=== PATIENT | female | born 1965 | race Caucasian/White ===

== ENCOUNTER 2017-07-27 16:42 | Observation (INO) | payer BC ==
[~2017-07-27] VITALS: Ht 152.4 cm; Wt 73.0 kg
[2017-07-27] MEDS ORDERED: FENTANYL CITRATE INJ 50 MCG/1 ML 2 ML VIAL IV STA ×2 (16:54→18:23)
[2017-07-27] MEDS ORDERED: CEFAZOLIN IV 1,000 MG in DEXTROSE 5% 50ML 50 ML IV STA (16:56)
[2017-07-27] MEDS ORDERED: NAPR-1169 PO (16:59)
[2017-07-27] MEDS ORDERED: CEFAZOLIN SOD 1000MG/5 ML IV PUSH IV ONE (16:59)
[2017-07-27] MEDS ORDERED: SODIUM CHLORIDE 0.9% 500ML 500 ML IV STA (17:05)
[2017-07-27] MEDS ORDERED: GABA-112 PO ×2 (17:06)
[2017-07-27] MEDS ORDERED: CYCL5TAB PO ×2 (17:20)
--- NOTE | 2017-07-27 17:58 | EMERGENCY ROOM VISIT NOTE ---
ED Visit Note First contact with patient: 16:47 CHIEF COMPLAINT: Wrist/forearm pain HISTORY OF PRESENT ILLNESS: This 52-year-old female patient presents to the emergency department, via ALS, complaining of pain in the left forearm wrist after falling from a 3 foot high stool. The patient states she thought she was on the bottom rung, however was not, and fell approximately 3 feet. She states her back landed against the wall, and she fell forward. She reports immediate bleeding and look down and states "I knew my arm was broken, it is a compound fracture". The patient is not able to move their wrist. The patient states the pain is severe and 10/10. There are two open puncture wounds, no weakness. No numbness or tingling. The patient denies any other injury. The patient is not able to move their fingers or elbow due to pain. The patient has had a previous fracture to this wrist and states she has 20% function of her radius and her ulna is significantly longer with severely limited flexibility in the wrist chronically. She did have an external fixation previously, but states there is no hardware in the forearm at this time. The patient has had 15 mg morphine IV prior to arrival for the pain. REVIEW OF SYSTEMS: A 6 system review of systems was performed with positives and pertinent negatives in the HPI. ALLERGIES: None MEDICATIONS: Naprosyn, Flexeril, gabapentin PMH: Chronic back pain due to herniated disks, impingement of L4/L5, heart murmur, hypoglycemia SOCIAL HISTORY: The patient lives locally with family. She denies drug, alcohol use. She does admit to smoking 1/2 pack cigarettes per day. PHYSICAL EXAM: Vital Signs: Reviewed Nurse's notes, vital signs stable. GENERAL : This is a 52-year-old female, in no acute distress, but appears to be in significant pain, well-developed, well-nourished. NEURO: Alert and oriented to person place and time. Normal sensation to light and sharp touch. MUSCULOSKELETAL: Examination is difficult due to patient's discomfort, even despite 50 mg morphine and 100 g fentanyl. When attempting to lightly touch the hands, the patient became agitated and kneed me in the head. There is deformity of the left wrist and forearm. There is tenderness and edema over the entire forearm, and the patient will not allow me to properly assess the injury. There is no snuff box tenderness. Range of motion is limited due to pain. There is tenderness of the elbow, hand, and fingers, however the patient states she feels that that is coming from her forearm. Repertoire Manager strength unable to be assessed due to patient discomfort and noncompliance. Radial pulse 2+. SKIN: There are 2 puncture wounds on the anterior aspect of the forearm, the larger one over the wrist, and the smaller one more proximal. There is bone sticking out of the larger wound. The hand is warm and well perfused with capillary refill less than 2 seconds. RADIOLOGY: X-Ray Left Forearm: LEFT FOREARM 2 VIEWS CLINICAL HISTORY: Fall with forearm deformity. FINDINGS: AP and lateral portable views of left forearm are obtained. No prior studies are available for comparison at the time of dictation. The skeletal structures appear osteopenic. There are distracted and horizontally oriented fractures of the distal shaft of the radius and ulna. There is posterior distraction of the fracture fragments by at least one shaft length. There is apex volar angulation of the ulnar fragment. There is overriding of the radial fragments by 1.5 cm. Overlying soft tissue edema is noted. There is notable joints are grossly maintained. IMPRESSION: There are horizontally oriented, distracted, and overriding fracture through the distal radial and ulnar shafts as above. Electronically signed by: Adiel Che M.D. 07/27/2017 5:58 PM Dictated Date/Time: 07/27/2017 5:55 PM CXR: SINGLE VIEW CHEST CLINICAL HISTORY: Preoperative examination. FINDINGS: An AP, portable, upright chest radiograph is obtained. No prior studies are available for comparison at the time of dictation. The examination is degraded by portable technique and patient rotation. The cardiomediastinal silhouette is unremarkable. There is minimal left basilar atelectasis. The lungs and pleural spaces are otherwise clear. No pneumothorax is seen. The bony thorax is grossly intact. IMPRESSION: No active disease in the chest. Electronically signed by: Adiel Che M.D. 07/27/2017 6:35 PM Dictated Date/Time: 07/27/2017 6:35 PM EMERGENCY DEPARTMENT COURSE: I examined the patient. The patient was given 100 g of fentanyl. An X-ray of the left forearm was obtained to the best of our ability, and was reviewed by myself and radiologist and showed horizontally oriented, distracted, and overriding fracture through the distal radial and ulnar shafts. I did discuss the case with Dr. Marquez, who did come to the emergency department to evaluate the patient. The patient was taken to the operating room for washout and possible internal fixation. A volar splint was placed under my direction to the best of our ability utilizing an IV board and Sherif wrap. Neurovascular status rechecked and intact. EKG, chest x-ray, and preop labs were ordered. Her without significant abnormality. The patient was given 0.5 mg Dilaudid and was taken immediately to the operating room. Please see Dr. Marquez's dictation for further evaluation and management. DIFFERENTIAL DIAGNOSIS: Fracture, contusion, open fracture, and others DIAGNOSIS: Fracture of the left distal radius and ulna Current/Historical Medications Scheduled Gabapentin (Neurontin), Unknown Dose PO TID Naproxen (Naprosyn), 500 MG PO HS Scheduled PRN Cyclobenzaprine Hcl (Flexeril), 5 MG PO TID PRN for SPASMS Allergies Coded Allergies: No Known Allergies (Unverified , 07/27/17) Vital Signs Date Time Temp Pulse Resp B/P (MAP) Pulse Ox O2 Delivery O2 Flow Rate FiO2 07/27/17 19:44 36.7 85 18 140/76 100 07/27/17 19:40 85 18 140/76 100 Room Air 07/27/17 18:44 83 18 124/74 100 Room Air 07/27/17 17:14 100 Nasal Cannula 2.0 07/27/17 16:47 36.7 100 20 161/109 100 Room Air Laboratory Results 07/27/17 18:57 07/27/17 18:57 Test 07/27/17 18:57 Red Blood Count 4.27 M/uL (4.2-5.4) Mean Corpuscular Volume 94.1 fL (80-100) Mean Corpuscular Hemoglobin 30.4 pg (25-34) Mean Corpuscular Hemoglobin Concent 32.3 g/dl (32-36) RDW Standard Deviation 47.5 fL (36.4-46.3) RDW Coefficient of Variation 13.8 % (11.5-14.5) Mean Platelet Volume 11.2 fL (7.4-10.4) Anion Gap 8.0 mmol/L (3-11) Est Creatinine Clear Calc Drug Dose 60.4 ml/min Estimated GFR () 78.7 Estimated GFR (Non- 67.9 BUN/Creatinine Ratio 14.4 (10-20) Calcium Level 8.7 mg/dl (8.5-10.1) Medications Administered Medications (Trade) Dose Ordered Sig/Whit Route Start Time Stop Time Status Last Admin Dose Admin Fentanyl Citrate (Fentanyl Inj) 100 mcg NOW STAT IV 07/27/17 16:54 07/27/17 16:57 DC 07/27/17 17:05 100 MCG Cefazolin Sodium 1000 mg/Dextrose 55 ml @ 100 mls/hr NOW STAT IV 07/27/17 16:56 07/27/17 17:28 DC 07/27/17 17:06 100 MLS/HR Sodium Chloride 500 ml @ 999 mls/hr Q31M STAT IV 07/27/17 17:05 07/27/17 17:35 DC 07/27/17 17:14 999 MLS/HR Hydromorphone HCl (Dilaudid Inj) 0.5 mg STK-MED ONCE .ROUTE 07/27/17 19:31 07/27/17 19:32 DC 07/27/17 19:33 0.5 MG Departure Information Impression Primary Impression: Fracture of forearm, distal, left, open Dispostion Admitted as an inpatient Condition GOOD Referrals No Doctor, Assigned (PCP) Patient Instructions [facility] Problem Qualifiers Primary Impression: Fracture of forearm, distal, left, open Encounter type: initial encounter Open fracture type: open type I or II Qualified Codes: S52.92XB - Unspecified fracture of left forearm, initial encounter for open fracture type I or II
[2017-07-27] MEDS ORDERED: HYDROmorphone INJ 0.5 MG/0.5 ML SYR IV STA (18:19)
--- NOTE | 2017-07-27 18:36 | DIAGNOSTIC IMAGING REPORT ---
SINGLE VIEW CHEST CLINICAL HISTORY: Preoperative examination. FINDINGS: An AP, portable, upright chest radiograph is obtained. No prior studies are available for comparison at the time of dictation. The examination is degraded by portable technique and patient rotation. The cardiomediastinal silhouette is unremarkable. There is minimal left basilar atelectasis. The lungs and pleural spaces are otherwise clear. No pneumothorax is seen. The bony thorax is grossly intact. IMPRESSION: No active disease in the chest. Electronically signed by: Adiel Che M.D. 07/27/2017 6:35 PM Dictated Date/Time: 07/27/2017 6:35 PM
[2017-07-27] MEDS ORDERED: BUPIVACAINE 0.5 % 5 MG/1 ML MPF 30ML VIAL ONE ×2 (18:59→21:59)
[2017-07-27] MEDS ORDERED: LIDOCAINE HCL 1% 20 ML VIAL ONE (18:59)
[2017-07-27 19:16] LABS: HEMATOCRIT 40.2 % (37-47); MEAN CELL VOLUME 94.1 fL (80-100); MEAN CORPUSCULAR HEMOGLOBIN 30.4 pg (25-34); MEAN CORPUSCULAR HGB CONC 32.3 g/dl (32-36); MEAN PLATELET VOLUME 11.2 fL (7.4-10.4); PLATELET COUNT 264 K/uL (130-400); RED BLOOD COUNT 4.27 M/uL (4.2-5.4); WHITE BLOOD COUNT 12.59 K/uL (4.8-10.8)
[2017-07-27] MEDS ORDERED: BUPIVACAINE/EPINEPHRINE 0.25% 1:200,000 30 ML VIAL ONE (19:17)
[2017-07-27] MEDS ORDERED: BACITRACIN 50000 UNIT VIAL ONE (19:18)
--- NOTE | 2017-07-27 19:21 | EMERGENCY ROOM VISIT NOTE ---
ED Visit Note First contact with patient: 16:54 The patient was seen and examined with Louise Howell PA-C. I agree with the history, physical and findings. Please see the note for disposition and details.
[2017-07-27] MEDS ORDERED: HYDROmorphone INJ 1 MG/ML SYR IV PRN ×3 (19:30→22:45)
[2017-07-27] MEDS ORDERED: HYDROmorphone INJ 0.5 MG/0.5 ML SYR ONE (19:31)
[2017-07-27 19:34] LABS: BUN/CREATININE RATIO 14.4 (10-20); CALCIUM 8.7 mg/dl (8.5-10.1); CREATININE 0.95 mg/dl (0.60-1.20); POTASSIUM 3.9 mmol/L (3.5-5.1)
[2017-07-27 19:44] VITALS: O2SAT 100
--- NOTE | 2017-07-27 19:46 | History and Physical ---
History & Physical Date Jul 27, 2017. Chief Complaint This is a 52-year-old female who sustained a fall when she missed the last step on a ladder she complains of on outstretched left hand. She has deformity and open injury over the left distal radius. She has a history of previous left distal radius fracture which she states was only 20% healed and did show malunion with ulnars hortening History of Present Illness The patient is a 52 year old female with complaints of Additional History Hepatic Disease: No Endocrine Disorder: No Kidney Disease: No Hypertension: No Heart Disease: No Bleeding Tendencies: No Infectious Diseases: No Other: History of low back pain Allergies Coded Allergies: No Known Allergies (Unverified , 07/27/17) Home Medications Scheduled Gabapentin (Neurontin), Unknown Dose PO TID Naproxen (Naprosyn), 500 MG PO HS Scheduled PRN Cyclobenzaprine Hcl (Flexeril), 5 MG PO TID PRN for SPASMS Physical Examination Skin: warm/dry, no rash Eyes: normal inspection, EOMI, sclerae normal ENT: normal ENT inspection, pharynx normal Head: normocephalic, atraumatic Neck: supple, no adenopathy, trachea midline Respiratory/Chest: lungs clear, normal breath sounds, no respiratory distress Cardiovascular: regular rate, rhythm, no edema, no murmur Extremities: + pertinent finding (left upper extremity shows open injury in the region of the distal ulna consistent with grade 1 open fracture. She is obvious dinner fork deformity of the left upper extremity. The hand is warm and well perfused. There are aspect of the wrist likely shows a laceration but is difficult to evaluate given the patient's significant pain. No open injuries in her elbow. She can flex and extend the digits but exam is limited secondary to patient discomfort) Neurologic/Psych: oriented x 3 Diagnosis Left open distal radius and distal ulna fracture Plan of Treatment Plan we will take her emergently to the operating room for irrigation and debridement of open fracture. I discussed with her is difficult to tell exactly on her radiographs extent of the injuries is possible she may have a nondisplaced fracture line in the proximal aspect of the shaft as well which may necessitate a longer plate. I discussed with her irrigation and debridement this point in time possible stabilization the bones with either splint immobilization versus ex-fix versus definitive treatment. She is understanding of these issues. Risks and benefits have been discussed including but not limited to risk of infection stiffness loss of motion failure to prevent etc. she understands she may need further surgical treatment. She is understanding of treatment options available to her I reviewed her prior radiographs which did show 20% union of a distal radius fracture with teacher shortening and loss of radial inclination and did show radial translation.
[2017-07-27] MEDS ORDERED: MIDAZOLAM HCL 1 MG/ML 2ML VIAL ONE (20:02)
[2017-07-27] MEDS ORDERED: FENTANYL CITRATE INJ 50 MCG/1 ML 2 ML VIAL ONE ×2 (20:03→22:07)
[2017-07-27] MEDS ORDERED: DEXAMETHASONE SOD INJ 4 MG/ML VIAL ONE (21:02)
[2017-07-27] MEDS ORDERED: ROCURONIUM BROMIDE 10 MG/ML 5 ML VIAL IV ONE (21:02)
[2017-07-27] MEDS ORDERED: PROPOFOL IV EMULSION 10 MG/ML 20 ML VIAL IV ONE (21:02)
[2017-07-27] MEDS ORDERED: LIDOCAINE HCL 2% 2 ML VIAL (20MG/ML) ONE (21:02)
[2017-07-27] MEDS ORDERED: ONDANSETRON INJ 2 MG/ML 2 ML VIAL ONE (21:03)
[2017-07-27] MEDS ORDERED: NEOSTIGMINE METHYLSULFATE 5 MG/5 ML SYR ONE (21:03)
[2017-07-27] MEDS ORDERED: GLYCOPYRROLATE INJ 0.2 MG/ML VIAL ONE (21:03)
[2017-07-27] MEDS ORDERED: FENTANYL CITRATE INJ 50 MCG/1 ML 2 ML VIAL IV PRN (22:00)
[2017-07-27] MEDS ORDERED: ONDANSETRON INJ 2 MG/ML 2 ML VIAL IV PRN (22:00)
[2017-07-27] MEDS ORDERED: MEPERIDINE HCL 25 MG/ML CARP IV PRN (22:00)
[2017-07-27] MEDS ORDERED: EpHEDrine SULFATE INJ 50 MG/ML AMP IV PRN (22:00)
[2017-07-27] MEDS ORDERED: LABETALOL HCL IV 5 MG/ML 20ML IV PRN (22:00)
[2017-07-27] MEDS ORDERED: ATROPINE SULFATE 0.1 MG/ML 5ML SYR IV PRN (22:00)
--- NOTE | 2017-07-27 22:30 | [facility] Post Operative Brief Note ---
Immediate Operative Summary Operative Date Jul 27, 2017. Pre-Operative Diagnosis Left open distal radius and distal ulna fracture Post-Operative Diagnosis Left open distal radius and distal ulna fracture Procedure(s) Performed Open Reduction Internal Fixation Left forearm Ulnar Surgeon Dr. Yobani Marquez Mine Captain Surgeon(s) none Estimated Blood Loss 10ml Findings OPEN ULNA FX Specimens none per surgeon Drains none Anesthesia GEN Complication(s) None Disposition Recovery Room / PACU
[2017-07-27] MEDS ORDERED: DiphenhydrAMINE HCL 50 MG/ML VIAL IV PRN (22:45)
[2017-07-27] MEDS ORDERED: ACETAMINOPHEN 325 MG TAB PO PRN (22:45)
[2017-07-27] MEDS ORDERED: ZOLPIDEM TARTRATE 5 MG TAB PO PRN (22:45)
[2017-07-27] MEDS ORDERED: MAGNESIUM HYDROXIDE SUSP 30 ML UDC PO PRN (22:45)
--- NOTE | 2017-07-27 23:02 | Anesthesiology Progress Note ---
Anesthesia Post Op Note Date & Time Jul 27, 2017 at 23:02 Vital Signs Pain Intensity: 0 Vital Signs Past 12 Hours Date Time Temp Pulse Resp B/P (MAP) Pulse Ox O2 Delivery O2 Flow Rate FiO2 07/27/17 22:55 62 17 119/76 99 Nasal Cannula 2 07/27/17 22:45 69 18 124/73 98 Nasal Cannula 2 07/27/17 22:35 66 16 133/68 98 Nasal Cannula 2 07/27/17 22:28 36.3 79 10 136/80 99 Nasal Cannula 2 07/27/17 19:44 36.7 85 18 140/76 100 07/27/17 19:40 85 18 140/76 100 Room Air 07/27/17 18:44 83 18 124/74 100 Room Air 07/27/17 17:14 100 Nasal Cannula 2.0 07/27/17 16:47 36.7 100 20 161/109 100 Room Air Notes Mental Status: alert / awake / arousable, participated in evaluation Pt Amnestic to Procedure: Yes Nausea / Vomiting: adequately controlled Pain: adequately controlled Airway Patency, RR, SpO2: stable & adequate BP & HR: stable & adequate Hydration State: stable & adequate Anesthetic Complications: no major complications apparent
[2017-07-27 23:20] VITALS: BP 128/58; PULSE 67; TEMP 36.7; Ht 152.4 cm; Wt 73.0 kg
--- NOTE | 2017-07-27 23:30 | OPERATIVE REPORT ---
DATE OF OPERATION: 07/27/2017 PREOPERATIVE DIAGNOSES: 1. Left grade 1 open ulnar fracture. 2. Left radial shaft fracture. POSTOPERATIVE DIAGNOSES: Same. PROCEDURE: 1. Left ORIF ulna shaft fracture. 2. Irrigation and debridement of left open fracture, skin, subcutaneous tissue and bone. ANESTHESIA: General. INDICATIONS: This is a 52-year-old female who sustained the above-mentioned injury. She presents with an open both bone forearm fracture. She presented with a previous history of trauma in the area and she states she had a malunion of the distal radius with approximately 20% union. She is concerned of a fracture at the previous site of injury. I evaluated her in the Emergency Department. We discussed risks, benefits, reasonable outcomes and options of treatment. She had a laceration on the volar aspect in the region of the ulna consistent with an open ulnar fracture. The risks and benefits have been discussed including, but not limited to, risk of infection, nerve injury, stiffness, loss of motion, failure to improve, etc. The patient is agreeable and wishes to proceed. DESCRIPTION OF OPERATION: I extended the patient's traumatic laceration, it was 1 cm over the distal ulna. Dissection was carried down through the skin and subcutaneous tissue. Open fracture was confirmed. I performed debridement of skin, subcutaneous tissue and bone, and I used a curette to clean out the bone and remove any debris from the area. I then made a longitudinal incision in line with this over the subcutaneous border of the ulna. Dissection was carried down through the skin and subcutaneous tissue. I incised the fascia between the ECU and FCU tendon. The ulna bone was identified. The ulna bone was very small, thin, and indeed appear somewhat osteoporotic, it had a very yellowish discoloration to it. The bone itself did not look very healthy from a metabolic standpoint. The bone was manually aligned with 2 lion jaw clamps. There was some comminution in the region of the fracture site. Given that the bone was very small, I felt a 3.5 mm plate would to be too big and only allowed 2 screws distally. I elected to place a 2.7 locking T-plate from the [employer] mini fragment set. I placed four screws distally in a combination of locking and nonlocking fashion, the first screw placed in a nonlocking fashion to adhere the plate down to the bone. I placed screws in proximally with the first screw in a nonlocking fashion and I placed a lag screw across the fracture site to lag in a butterfly piece. This resulted in good stability and alignment of the ulna. Remainder of the screws were placed in a locking fashion with the unicortical screw in the most proximal hole. Tourniquet was let down, hemostasis was obtained with bipolar electrocautery. Prior to fixation, I irrigated the fracture copiously with 2 liters of normal saline. Fascial layer was closed with 2-0 Vicryl, 4-0 Monocryl was used in the subcutaneous tissue, adriel were used on the skin in the region of the open fracture, this was closed with 4-0 nylon. The patient had additional puncture wound over the dorsal aspect of the forearm. This was not an open fracture, but this was debrided and closed with 4-0 nylon. I then inspected her radius fracture. There was significant abnormality consistent with prior malunion. There was no evidence of break through this area. There was a complete fracture in the radial shaft and there was a second fracture which was noted which was segmental and proximal to the previous fracture by at least 5-6 cm. Given these findings, I felt this required extensive surgery and would be best served with fixation in a delayed fashion when my regular operating team is available for complex fracture fixation. I discussed this in detail with the patient's family and they are agreeable to the plan of care. The patient was placed in a volar splint, sent to the PACU in stable condition. I attest to the content of the Intraoperative Record and any orders documented therein. Any exception s are noted below.
[2017-07-27 23:45] VITALS: BP 136/82; PULSE 61; TEMP 36.6; O2SAT 96
[2017-07-28] MEDS: OXYCODONE/ACETAMINOPHEN 5-325 TAB PO PRN ×3 (00:02→09:58)
[2017-07-28 00:15] VITALS: BP 128/82; PULSE 63; TEMP 36.9; O2SAT 98
[2017-07-28] MEDS ORDERED: IV FLUIDS COMPLETED PRN (00:15)
[2017-07-28] MEDS ORDERED: CEFAZOLIN IV 1,000 MG in SYRINGE 0 ML IV SCH (01:00)
[2017-07-28 01:15] VITALS: BP 105/68; PULSE 85; TEMP 37.1; O2SAT 95
[2017-07-28 02:13] VITALS: BP 109/68; PULSE 85; TEMP 36.9; O2SAT 96
[2017-07-28] MEDS: KETOROLAC TROMETHAMINE 30 MG/ML VIAL IV. PRN ×2 (02:13→08:13)
[2017-07-28 03:41] VITALS: BP 115/68; PULSE 78; TEMP 37; O2SAT 96
[2017-07-28 06:46] VITALS: BP 100/63; PULSE 69; TEMP 36.8; O2SAT 96
--- NOTE | 2017-07-28 07:28 | DIAGNOSTIC IMAGING REPORT ---
INTRAOPERATIVE RADIOGRAPHS CLINICAL HISTORY: Open reduction and internal fixation of the left ulna. Fluoroscopy time: 1 minute 18 seconds. FINDINGS: 5 spot fluoroscopic views of the distal left radius and ulna are correlated with radiographs of the left forearm dated 07/27/2017. Again seen are horizontally oriented fractures through the distal radius and ulna. There has been buttress plate fixation of the ulnar fracture. At least 8 cortical lag screws transfix the plate and there has been catholic of near-anatomic alignment. There has been improved alignment of the radial fracture with persistent offset of the fragments by several millimeters. Chronic posttraumatic deformity of the distal radius is similar to previous. IMPRESSION: Intraoperative images from open reduction and internal fixation of the left ulna as above. See operative report for detailed findings. Electronically signed by: Adiel Che M.D. 07/27/2017 10:16 PM Dictated Date/Time: 07/27/2017 10:14 PM
--- NOTE | 2017-07-28 07:28 | DIAGNOSTIC IMAGING REPORT ---
INTRAOPERATIVE RADIOGRAPHS CLINICAL HISTORY: Open reduction and internal fixation of the left ulna. Fluoroscopy time: 1 minute 18 seconds. FINDINGS: 5 spot fluoroscopic views of the distal left radius and ulna are correlated with radiographs of the left forearm dated 07/27/2017. Again seen are horizontally oriented fractures through the distal radius and ulna. There has been buttress plate fixation of the ulnar fracture. At least 8 cortical lag screws transfix the plate and there has been sikhism of near-anatomic alignment. There has been improved alignment of the radial fracture with persistent offset of the fragments by several millimeters. Chronic posttraumatic deformity of the distal radius is similar to previous. IMPRESSION: Intraoperative images from open reduction and internal fixation of the left ulna as above. See operative report for detailed findings. Electronically signed by: Adiel Che M.D. 07/27/2017 10:16 PM Dictated Date/Time: 07/27/2017 10:14 PM
--- NOTE | 2017-07-28 10:56 | Orthopedic Progress Note ---
Orthopedic Progress Note Date of Service Jul 28, 2017. Subjective Post OP Day: 1 Reports: feeling well Additional Notes: some pain off and on but tolerating well Objective splint C/D/I, dressing C/D/I, A&O x3 Moving all fingers well. Good cap refill. Has some decreased sensation from previous injury which does not seem to be accentuated with this new injury. Date Time Temp Pulse Resp B/P (MAP) Pulse Ox O2 Delivery O2 Flow Rate FiO2 07/28/17 10:24 Room Air 07/28/17 06:46 36.8 69 19 100/63 (75) 96 Room Air 07/28/17 03:41 37.0 78 16 115/68 (84) 96 Room Air 07/28/17 02:13 36.9 85 18 109/68 (82) 96 Room Air 07/28/17 01:15 37.1 85 16 105/68 (80) 95 Room Air 07/28/17 00:15 36.9 63 16 128/82 (97) 98 Room Air 07/27/17 23:45 36.6 61 16 136/82 (100) 96 Room Air 07/27/17 23:34 Nasal Cannula 2.0 07/27/17 23:20 Nasal Cannula 2.0 07/27/17 23:20 36.7 67 16 128/58 Nasal Cannula 2.0 07/27/17 23:05 36.4 69 22 133/79 98 Nasal Cannula 2 07/27/17 22:55 62 17 119/76 99 Nasal Cannula 2 07/27/17 22:45 69 18 124/73 98 Nasal Cannula 2 07/27/17 22:35 66 16 133/68 98 Nasal Cannula 2 07/27/17 22:28 36.3 79 10 136/80 99 Nasal Cannula 2 07/27/17 19:44 36.7 85 18 140/76 100 07/27/17 19:40 85 18 140/76 100 Room Air 07/27/17 18:44 83 18 124/74 100 Room Air 07/27/17 17:14 100 Nasal Cannula 2.0 07/27/17 16:47 36.7 100 20 161/109 100 Room Air Laboratory Results 24 Hours: Test 07/27/17 18:57 Hematocrit 40.2 % Hemoglobin 13.0 g/dL Assessment & Plan Assessment: 1. Left grade 1 open ulnar fracture. 2. Left radial shaft fracture. POD 1 s/p Left ORIF ulna shaft fracture. Irrigation and debridement of left open fracture, skin, subcutaneous Plan: Plan for dc to home today. She will need to stop by the office today to schedule further surgery for her Radius Fx. Inhouse Planning Pain Management: Percocet, Toradol, Dilaudid Discharge Planning Discharge Planning: home Pain Management: Percocet
[2017-07-28] MEDS ORDERED: OXYC-57 PO ×3 (11:01→11:09)
[2017-07-28] MEDS ORDERED: KFL500 PO ×2 (11:01)
--- NOTE | 2017-07-28 11:08 | Discharge Instructions ---
Discharge Instructions Date of Service Jul 28, 2017. Admission Reason for Admission: Fracture Of Forearm, Distal, Left, Open Discharge Discharge Diagnosis / Problem: Left Open Radius Fracture; Closed Ulnar Fracture Discharge Goals Goal(s): Decrease discomfort, Improve function Activity Recommendations Activity Limitations: per Instructions/Follow-up section . Instructions / Follow-Up Instructions / Follow-Up PLEASE GO TO DR FONG'S OFFICE AFTER YOU LEAVE THE HOSPITAL TODAY. ACTIVITY RECOMMENDATIONS: * Avoid lifting anything heavier than a medium water glass until your first post operative visit. SPECIAL CARE INSTRUCTIONS: * Your bandage should be left in place until. * Some drainage onto the dressing may occur. This is normal. * If the bandage feels excessively tight, you may loosen the elastic bandage. Then call the physician's office for further instructions. * If possible, keep your hand elevated above the level of your heart for the first 2 post operative days. You may use a sling if necessary. * You should move your fingers regularly (50-100 motions per hour) unless otherwise instructed. SPECIAL PRECAUTIONS: * If you notice increased drainage, fever over 101 degrees F. or severe, unremitting pain, call your physician/office at . * You may have been prescribed pain medication. If you experience nausea and/or skin rash, discontinue this medication and contact our office for an alternative medication. FOLLOW UP VISIT: If appointment is not already scheduled: Please go to [facility] today for a follow-up appointment with KATINA BERG PA-C . Current Hospital Diet Patient's current hospital diet: Diabetes Type 2 Diet, Regular Diet Discharge Diet Recommended Diet: Regular Diet Procedures Procedures Performed: Open Reduction Internal Fixation Left forearm Ulnar Pending Studies Studies pending at discharge: no Medical Emergencies . Who to Call and When: Medical Emergencies: If at any time you feel your situation is an emergency, please call 494 immediately. . Non-Emergent Contact Non-Emergency issues call your: Surgeon Call Non-Emergent contact if: temperature is above 101.5, your pain is not controlled, your pain is worsening, wound has increased drainage, wound has increased redness . "Provider Documentation" section prepared by [employer]. . VTE Core Measure Inpt VTE Proph given/why not?: Other Anticoagulation [place] Drug Monitoring Program Search Results: patient reviewed within database, no issues identified
[2017-07-28 11:17] VITALS: BP 100/63; PULSE 69; TEMP 36.8; O2SAT 96
[2017-07-28] MEDS ORDERED: HYDROmorphone INJ 0.5 MG/0.5 ML SYR IV PRN (11:30)
--- NOTE | 2017-07-30 17:01 | DISCHARGE SUMMARY ---
DISCHARGE DIAGNOSES: 1. Left grade 1 open ulnar fracture. 2. Left radial shaft fracture. CONSULTS: None. COMPLICATIONS: None. PROCEDURES: 1. Left ORIF of ulna shaft fracture. 2. Irrigation and debridement of left open fracture, skin, subcutaneous tissue and bone by Dr. Marquez on 07/27/2017. BRIEF HISTORY: As dictated in history and physical. HOSPITAL SUMMARY: The patient was admitted on the above date and had the above-noted surgery performed which she tolerated well. On her first postoperative day, she was feeling well and had pain off and on but was tolerating well. Splint was clean, dry and intact and she was alert and oriented. She was moving all her fingers well. She has good capillary refill. She had some decreased sensation from previous injury in which she did not seem to be accentuated with a new injury or surgery. Vital signs are stable. She is afebrile. Hemoglobin was 13.0. She was remaining stable and plans were for her to be discharged to home and for her stop at the Dr. Marquez's office that day for scheduling for further surgery on her radial shaft fracture. She was otherwise remaining stable and it was felt she could be discharged to home on 07/28/2017. For further review, please see chart. LABORATORY AND X-RAY DATA: As per chart. DISCHARGE INSTRUCTIONS: The patient was discharged to home in satisfactory condition on 07/28/2017. DIET: Regular. ACTIVITY: Follow upper extremity discharge instructions and special precautions as noted. Follow up with Dr. Marquez and Kristi Allison PA-C on the day of discharge. DISCHARGE MEDICATIONS: Keflex 500 mg 1 tab p.o. q.i.d. and Percocet 5/325 1-2 tabs p.o. q. 4-6 hours p.r.n. Resume home meds as listed and stop taking naproxen.
== END 2017-07-28 11:59 | disposition home or self-care (01) ==
LOC: EDBD 16:42 → C.EDC 16:43 → C.MSW 23:00 → ENRESERV 23:05
PROVIDERS: ADMIT Orthopaedic Surgery; ATTEND Orthopaedic Surgery
DX: S52.602B Unspecified fracture of lower end of left ulna, initial encounter for open fracture type I or II (principal); S52.502A Unspecified fracture of the lower end of left radius, initial encounter for closed fracture; W17.89XA Other fall from one level to another, initial encounter; F17.200 Nicotine dependence, unspecified, uncomplicated

== ENCOUNTER → 2017-07-31 | Outpatient (CLI) | payer BC ==
[~2017-07-31] MED LIST: CYCL5TAB PO; GABA-112 PO; KFL500 PO; NAPR-1169 PO; OXYC-57 PO
== END | disposition home or self-care (01) ==
LOC: C.PATHSPEC 11:03
PROVIDERS: ATTEND Orthopaedic Surgery
DX: S52.392A Other fracture of shaft of radius, left arm, initial encounter for closed fracture (principal); X58.XXXA Exposure to other specified factors, initial encounter

== ENCOUNTER → 2018-05-19 | Outpatient (CLI) | payer BC ==
[~2018-05-19] MED LIST changes: -NAPR-1169 PO
[2018-05-19 13:04] LABS: BASO % 1.4 %; BASO ABS # 0.09 K/uL (0-0.2); EOS % 9.5 %; EOS ABS # 0.61 K/uL (0-0.5); HEMATOCRIT 43.2 % (37-47); HEMOGLOBIN 14.6 g/dL (12.0-16.0); IG# 0.01 K/uL (0.00-0.02); LYMPH % 31.1 %; LYMPH ABS # 1.99 K/uL (1.2-3.4); MEAN CORPUSCULAR HEMOGLOBIN 32.4 pg (25-34); MEAN CORPUSCULAR HGB CONC 33.8 g/dl (32-36); MEAN PLATELET VOLUME 11.6 fL (7.4-10.4); MONO % 7.7 %; MONO ABS # 0.49 K/uL (0.11-0.59); NEUT % 50.1 %; NEUT ABS # 3.21 K/uL (1.4-6.5); PLATELET COUNT 291 K/uL (130-400); RED CELL DISTRIBUTION WIDTH CV 14.1 % (11.5-14.5); RED CELL DISTRIBUTION WIDTH SD 49.5 fL (36.4-46.3)
[2018-05-19 13:34] LABS: HEMOGLOBIN A1C 5.8 % (4.5-5.6)
[2018-05-19 13:35] LABS: T3 FREE 2.82 pg/ml (2.30-4.20)
[2018-05-19 13:46] LABS: ALBUMIN 3.9 gm/dl (3.4-5.0); ALKALINE PHOSPHATASE 64 U/L (45-117); ALT/SGPT 27 U/L (12-78); AST/SGOT 22 U/L (15-37); BLOOD UREA NITROGEN 27 mg/dl (7-18); CALCIUM 9.1 mg/dl (8.5-10.1); CARBON DIOXIDE 28 mmol/L (21-32); CREATININE 0.99 mg/dl (0.60-1.20); GLUCOSE 95 mg/dl (70-99); POTASSIUM 4.5 mmol/L (3.5-5.1); SODIUM 138 mmol/L (136-145); TOTAL PROTEIN 7.5 gm/dl (6.4-8.2)
[2018-05-24 13:31] LABS: MICROSOMAL AB <1 IU/ML (<9)
== END | disposition home or self-care (01) ==
LOC: C.LABPBG 08:28
PROVIDERS: ATTEND Chiropractor
DX: M79.1 Myalgia (principal)